=== PATIENT | male | born 1935 | race Caucasian/White ===

== ENCOUNTER 2017-02-15 06:43 | Inpatient (IN) ==
--- NOTE | 2017-02-14 15:23 | Anesthesia Evaluation PreOp ---
Date of Encounter: 02/15/17 Time of Encounter: 07:30 - Past History Planned Operation: CABG Cardiac History: Angina, HTN, Hyperlipidemia, Arrhythmia (bradycardia, first degree AV block, LBBB) Pulmonary History: Other (MCCLAIN) APPLICATION SECURITY ARCHITECT History: Denies Any Significant HX Other Medical History: Diabetes Type II, Other (skin cancer) Anesthesia History: No Prior Anesthetic Complications, Past Anesthesia ( circumcision) Alcohol Use: rarely Drug use: none Medications and Allergies GlipiZIDE XL (24 HR) [Glucotrol XL] 2.5 mg PO 0800 #0 12/24/15 [History] Losartan [Cozaar] 25 mg PO DAILY #0 12/24/15 [History] Metformin HCl [Glucophage] 1,000 mg PO BID #0 12/24/15 [History] hydroCHLOROthiazide [Hydrochlorothiazide] 12.5 mg PO DAILY #0 12/24/15 [History ] Aspirin 81 mg PO DAILY 12/31/16 [History] Acetaminophen [Tylenol] 650 mg PO Q6HR PRN 02/15/17 [History] Atorvastatin Calcium [Lipitor] 20 mg PO HS 02/15/17 [History] Ibuprofen [Motrin] 200 mg PO Q6HR PRN 02/15/17 [History] Insulin Glargine [Lantus] 10 unit SQ HS 02/15/17 [History] Allergies No Known Allergies Allergy (Verified 02/15/17 07:15) - Meds/Allergy Pre-op Review Medications Reviewed: Yes Allergies Reviewed: Yes Beta Blockers on Current Med List: No If Beta Blockers taken, Date/Time (Last Dose taken): 073 on 02/15 Anesthesia Results - Labs Laboratory Tests 02/14/17 02/14/17 15:35 15:35 WBC 8.3 Hgb 13.4 Hct 39.1 Plt Count 208 Sodium 137 Potassium 4.3 BUN 17 Creatinine 1.12 - Imaging EKG: report reviewed Additional studies: Cath shows severe 3 vessel disease with EF 45% Anesthesia Exam Selected Entries 02/15/17 07:11 Temperature 97.8 F Pulse Rate 63 Respiratory Rate 18 Blood Pressure 154/81 O2 Sat by Pulse Oximetry 96 Height: 70in Weight: 89kg (196lbs) NPO (# of Hours): 8 Pain Scale: 0 Pain Scale Used: Numeric (1 - 10) - HEENT Pupil (Motor): EOMI Mallampati: II Teeth: Normal Oral Opening: Greater than 3 - APPLICATION SECURITY ARCHITECT LOC: Oriented APPLICATION SECURITY ARCHITECT Motor: Normal RUE, Normal LUE, Normal RLE, Normal LLE, Normal Face APPLICATION SECURITY ARCHITECT Sensory: Normal: RUE, LUE, RLE, LLE, Face - Cardiac Rhythm: Regular Murmur: None - Pulmonary Breath Sounds: bilateral Clear Respiratory Effort: Symmetrical Anesthesia Assess/Plan ASA Score: 3 Modified [place] Scale for Level of Consciousness: Cooperative, oriented, and tranquil Anesthetic Plan: General Monitoring Plan: Standard Monitors, A-Line, PAC, FER Recovery Plan: ICU (Discussed risks of GA, lines, FER and blood products. Questions answered and agrees to proceed.)
[2017-02-15] MEDS ORDERED: *HR* Phenylephrine 10 MG/ML VIAL ONE (06:54)
[2017-02-15] MEDS ORDERED: *HR* Norepinephrine 4 MG/4 ML VIAL IVC ONE (06:54)
[2017-02-15] MEDS ORDERED: *HR* Rocuronium Bromide 50 MG/5 ML VIAL ONE ×2 (06:54→10:44)
[2017-02-15] MEDS ORDERED: *HR* Etomidate 20 MG/10 ML AMPUL IVP ONE (06:55)
[2017-02-15] MEDS ORDERED: Protamine Sulfate 250 MG/25 ML VIAL IVP ONE (06:55)
[2017-02-15] MEDS ORDERED: Tranexamic Acid 1,000 MG/10 ML VIAL ONE ×2 (06:55→10:04)
[2017-02-15] MEDS ORDERED: Famotidine 20 MG/2 ML VIAL ONE (06:55)
[2017-02-15] MEDS ORDERED: ceFAZolin 1,000 MG in D5% in Water (Mini-Bag+) 100 ML IVPB ONE (07:04)
[2017-02-15] MEDS ORDERED: *HR* Midazolam HCl 5 MG/5 ML VIAL IVP ONE (07:04)
[2017-02-15] MEDS ORDERED: *HR* FentaNYL (PF) 1,000 MCG/20 ML VIAL ONE (07:04)
[2017-02-15] MEDS ORDERED: Nitroglycerin 25 MG/250 ML INFUS..BTL IVC ONE ×2 (07:07→09:18)
[2017-02-15] MEDS ORDERED: NiCARdipine 2.5 MG/10 ML Syringe IVPB ONE (07:08)
--- NOTE | 2017-02-15 07:19 | History & Physical Report ---
Date of Encounter: 02/15/17 Time of Encounter: 07:19 24 Hour HP Update - Instructions Instructions: If the History and Physical is less than 30 days old and was completed prior to A.M. admission and or procedure and has NOT been updated on calendar day of procedure please complete this update prior to performing procedure. - Update Patient reports changes in Medical Condition: No Changes in examination, assessment, or condition: No Changes in Medication: No Preop tests/diagnostics Reviewed: No Pre-Op MRSA Screen: Negative Surgery Remains Indicated: Yes Consent for Planned Operative Procedure(s) Verified: Yes - Pre-Operative Checklist Preoperative Checklist Indicated: No Prophylactic Antibiotic Ordered: Yes Home Medications Include Beta Jorge A: Yes Beta Jorge A Taken Today (Day of Surgery): Yes Beta Jorge A Taken Yesterday (Day Prior to Surgery): Yes Is VTE Prophylaxis Indicated?: NO
[2017-02-15] MEDS ORDERED: Chlorhexidine Rinse 15 ML MOUTHWASH MM ONE (07:23)
[2017-02-15] MEDS ORDERED: Chlorhexidine Rinse 15 ML MOUTHWASH ONE (07:32)
[2017-02-15] MEDS ORDERED: CeFAZolin Pre 2,000 MG/100 ML 2,000 MG/100 ML BAG ONE (07:32)
[2017-02-15] MEDS ORDERED: CeFAZolin Pre 2,000 MG/100 ML 2,000 MG/100 ML BAG IVPB ONE (07:40)
[2017-02-15] MEDS ORDERED: Chlorhexidine Rinse 15 ML MOUTHWASH MM SCH (09:00)
--- NOTE | 2017-02-15 09:14 | Anesthesia Procedures ---
Date of Encounter: 02/15/17 Time of Encounter: 08:00 Procedures: Anesthesia - Arterial Line Consent obtained: written consent Time out performed: Yes Sedation: Versed (mg): 2 Sedation: Fentanyl (mcg): 100 Supplemental Oxygen via Nasal Cannula (L/min): 2 Local Anesthetic: Lidocaine 1% Amount of Anesthetic used (mls): 1 Size (Gauge): 20 Length (inches): 5 Technique Used: sterile prep, guide wire technique, direct puncture technique Post-Procedure: line taped into place, dry sterile dressing placed Patient tolerated procedure: well, no complications Complications: none Site: Radial L (attempt x 1) - Central Line Placement Right IJ Consent obtained: written consent Time out performed: Yes Patient placed on monitor/pulse ox: Yes prep: mask, gown, gloves Central line prep: Chlorhexidine scrub Ultrasound used for placement: Yes Technique: Seldinger Lumen Inserted: Introducer Post procedure: sutured in place, good blood return, all ports aspirated, flushed, capped, sterile dressing applied Patient tolerated procedure: well, no complications Complications: none (attempt x 1. Easy placement of introducer, swan placed without arrythmia, wedge approx 58cm)
[2017-02-15] MEDS ORDERED: Albumin Human 5% 50.0 GM/1,000 ML VIAL ONE (09:18)
[2017-02-15] MEDS ORDERED: Albumin Human 5% 25.0 GM/500 ML VIAL ONE (11:33)
[2017-02-15] MEDS ORDERED: Protamine Sulfate 50 MG/5 ML VIAL IVP ONE (11:36)
[2017-02-15] MEDS ORDERED: Insulin Regular, Human 100 UNIT/ML IV PRN (12:07)
[2017-02-15] MEDS ORDERED: Potassium Chloride 40 MEQ/200 ML BAG IVPB PRN (12:07)
[2017-02-15] MEDS ORDERED: Acetaminophen 650 MG RECTAL SUPP RC PRN (12:07)
[2017-02-15] MEDS ORDERED: Magnesium Sulfate 2 GM in D5% in Water 100 ML IVPB PRN (12:07)
[2017-02-15] MEDS ORDERED: *HR* OxyCODONE/APAP 5/325 TABLET PO PRN (12:07)
[2017-02-15] MEDS ORDERED: *HR* Dextrose 50 % in Water (Syg) 50 ML SYRINGE IVP PRN (12:07)
[2017-02-15] MEDS ORDERED: Ondansetron 4 MG/2 ML VIAL IVP PRN (12:07)
[2017-02-15] MEDS ORDERED: Calcium Chloride 1,000 MG in 0.9 % Sodium Chloride 100 ML IVPB PRN (12:07)
[2017-02-15] MEDS ORDERED: *HR* Morphine 2 MG/ML SYRINGE IVP PRN (12:07)
[2017-02-15] MEDS ORDERED: Naloxone 0.4 MG/ML INJ IVP PRN (12:07)
[2017-02-15] MEDS ORDERED: Tranexamic Acid 1,000 MG/10 ML VIAL IV ONE (12:15)
[2017-02-15] MEDS ORDERED: *HR* Magnesium Sulfate 2 GM/50 ML PIGGYBACK IVPB ONE (12:15)
[2017-02-15] MEDS ORDERED: Mannitol 25% vial 12.5 GM/50 ML VIAL IVP ONE (12:15)
[2017-02-15] MEDS ORDERED: *HR* Heparin 10,000 UNIT/10 ML VIAL IV ONE (12:15)
[2017-02-15] MEDS ORDERED: Albumin Human 25% 25 GM/100 ML IV.SOLN IV ONE (12:15)
[2017-02-15] MEDS ORDERED: Sodium Bicarbonate 50 MEQ/50 ML VIAL IVC ONE (12:15)
[2017-02-15] MEDS ORDERED: *HR* Phenylephrine 10 MG/ML VIAL IVC ONE (12:15)
[2017-02-15] MEDS ORDERED: Lidocaine 2% Syringe 100 MG/5 ML IV ONE (12:15)
--- NOTE | 2017-02-15 12:34 | Operative Note ---
Date of procedure: 02/15/17 Pre-op diagnosis: CAD Post-op diagnosis: same Procedure: 1. CABG4 (BABB to LAD, SVG to D1, SVG to distal LCx, SVG to PDA). 2. Endoscopic vein harvesting, greater saphenous vein from right lower extremity. 3. Endoscopically vein harvesting, greater saphenous vein from left lower extremity. Implants: None. Complications: None. Surgeon: Chris Orellana Chief Of Internal Medicine: Rashid Hidalgo Specimen: None. Condition: stable Disposition: ICU Procedure in Detail: INDICATIONS FOR OPERATION: The patient is an 81-year-old type II diabetic, hypertensive man with hypercholesterolemia. His cardiac symptoms began approximately 1 year ago when he experienced dizziness. He was evaluated at the [facility] urgent care [facility] and then transferred to [facility] for further care. At that time the patient underwent a transthoracic echocardiogram and was found to have an LVEF 45%. 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 Approximately 8-9 months ago, the patient began experiencing recurrent episodes of dizziness, particularly when lifting heavy objects. As time progressed and began experiencing retrosternal "gas pain" as well as shortness of breath. A repeat echocardiogram revealed an LVEF 45%. Given his new symptoms and cardiac risk profile, he was recommended for cardiac catheterization. This study performed December 31, 2016 revealed severe 3 vessel CAD and an LVEF 40%. In particular, the patient has a 50% distal left main lesion, an 80% proximal LAD lesion at the bifurcation of a large D1 branch, an 80-90% proximal D1 branch lesion, and 80% proximal LCx lesion, and a 99% mid RCA lesion. The patient was recommended for CABG; however, wished to be evaluated at the [facility]. During this evaluation the patient was recommended for stent placement, but the patient adamantly refused this procedure and preferred to have CABG. The patient was seen for a second opinion and then scheduled for CABG. FINDINGS AT OPERATION: The aorta was normal caliber and slightly thickened. The coronary arteries measured approximately 2-3 mm in diameter had mild distal disease. The greater saphenous veins were harvested endoscopically from both the right lower extremity and the left lower extremity and were of good quality. The total bypass time was 87 minutes, cross-clamp time 44 minutes, intentional hypothermia 33C. DESCRIPTION OF OPERATION: After obtaining informed consent from the patient, he was taken to the operating room where satisfactory general tracheal anesthetic was induced. Appropriate monitoring lines were placed, and the patient's chest, abdomen, and lower extremities were prepped and draped in a sterile fashion. The greater saphenous vein was initially harvested in the right lower extremity from the knee to the groin. The vein was removed, distended, and one usable segment of vein was obtained. The remaining vein was small and not satisfactory for bypass conduit. The greater saphenous vein was then harvested from the left lower extremity with the knee to the groin. The vein was removed, distended, and found to be of good quality. The subcutaneous tissue and skin edges were reapproximated using running Vicryl sutures. Simultaneously a standard median sternotomy incision was made and the sternum divided. The BABB was taken down from its bed and side branches divided between hemoclips. The sternum was and the pericardium opened and reflected laterally. The patient was prepared for cannulation by placing pursestring sutures the distal ascending aorta, mid-ascending aorta, and right atrial appendage. The patient was heparinized and when the ACT was greater than 200 seconds, the distal ascending aorta was cannulated followed by placement of a dual stage venous cannula through the right atrial appendage and into the inferior vena cava. A stab-and antegrade metabolic and he was placed in the mid ascending aorta. The patient was placed on bypass and the temperature allowed to drift to 33C. The distal targets were identified and the aorta was crossclamped. The patient received 700 mL of cold antegrade crystalloid cardioplegia through the aortic root, and the patient's heart and rapid diastolic arrest. The PDA was opened to be ablated the vein was anastomosed in end-to-side fashion using running 7-0 Prolene suture. The anastomosis was found to be hemostatic. The patient received a notice cold antegrade crystalloid currently just above the aortic root and the right graft. The distal LCx/OM2 branch was opened with the blade and the vein was anastomosed in an end-to-side fashion using running 7-0 Prolene suture. The anastomosis found to be hemostatic. This process is repeated for the D1 branch. After this anastomosis was found to be hemostatic the patient received another dose of cold antegrade crystalloid cardioplegia through the aortic root. The LAD was opened be ablated and the BABB was anastomosed in an end-to-side fashion to the LAD using a running 7-0 Prolene suture. The anastomosis found to be hemostatic and the mammary pedicle was tacked to the epicardium using interrupted 5-0 silk suture. Rewarming was begun during this anastomosis. The aortic cross-clamp was released and the heart distended. The veins were measured and cut at appropriate lengths. A partial occluding clamp was placed across the midascending aorta and the antegrade cardioplegia cannula was removed. Two additional aortotomy sites were made with 11 blade and all 3 sites were enlarged 4 mm punch. The veins were anastomosed in an end-to-side fashion to the aorta using a running 5-0 Prolene suture. The vein grafts were occluded with bulldog clamp and de-aired with a 25-gauge needle prior to removing the partial occluding clamp. The proximal distal anastomoses were found to be hemostatic and the proximal anastomoses were marked with radiopaque loops. Two sets of temporary epicardial pacing was replaced, one atrial and one ventricular. Three chest tubes were placed, 2 in the mediastinum and one into the left pleural space. During rewarming the patient's heart regained a sinus bradycardia rhythm and required temporary DDD pacing. When the patient's systemic temperature is 36C, he was ventilated received line. He was then weaned from bypass required no inotropic support. Protamine was administered, and the aortic and venous cannulae were removed. The pursestring sutures were secured. The venous cannulation site was reinforced with a 4 Prolene suture. The pericardium was loosely approximated the midline using interrupted 0 silk suture. The sternum was reapproximated using sternal wires and the pectoralis major, rectus abdominis fascia, subcutaneous tissue, and skin edges were reapproximated using running Vicryl sutures. Sterile dressings were applied. The patient was transferred to the ICU in satisfactory postoperative condition. There were no intraoperative complications, and the instrument, needle, and sponge count were correct at the end of operation. - Open Heart Detail NANCY (Internal Mammary Artery) Usage: Yes Cardiopulmonary Bypass Time (mins): 87 Aortic Cross Clamp Time (mins): 44 Intentional Hypothermia Temperature (C.): 33
[2017-02-15] MEDS: Nitroglycerin 25 MG/250 ML INFUS..BTL IVC SCH (12:35)
[2017-02-15] MEDS: niCARdipine 40 MG/200 ML MLS IVC SCH (12:45)
[2017-02-15 13:00] LABS: ABG Base Excess 1.9 mEq/L (-2.0 to 3.0); ABG HCO3 26.6 mEQ/L (21-27); ABG Oxygen Saturation 99 % (95-98); ABG PCO2 41 mmHg (35-45); ABG PH 7.42 pH Units (7.32-7.45); ABG PO2 143 mmHg (85-104); ABG TCO2 27.9 mEq/L (20-26); Red Cell Distribution Width 12.9 % (11.5-14.5)
[2017-02-15 13:01] LABS: Blood Gas FiO2 50 %
[2017-02-15 13:02] LABS: Basophils % 0.3 %; Eosinophils # 0.3 K/mcL (0.0-0.6); Immature Granulocytes % 0.9 % (0-4); Immature Platelets 12.9 % (1.1-6.1); Lymphocytes # 3.4 K/mcL (0.6-4.6); Lymphocytes % 24.5 %; Mean Corpuscular HGB Conc 34.5 g/dL (31.6-35.5); Mean Corpuscular Hemoglobin 30.1 pg (28.0-33.3); Mean Corpuscular Volume 87.3 fL (83.0-100.0); Mean Platelet Volume 12.1 fL (9.4-12.4); Monocytes # 0.3 K/mcL (0.0-1.3); Monocytes % 2.5 %; Neutrophils # 9.6 K/mcL (1.6-8.9); Red Blood Count 3.32 M/mcL (4.19-5.50); Segmented Neutrophils % 69.8 %
[2017-02-15 13:07] LABS: INR 1.5; Prothrombin Time 15.9 Seconds (9.4-12.1)
[2017-02-15 13:11] LABS: Activated Partial Thrombo Time 34.4 Seconds (26.0-36.0)
[2017-02-15 13:12] LABS: BUN/Creatinine Ratio 16 (6-26); Blood Urea Nitrogen 14 mg/dL (8-26); Calcium 8.7 mg/dL (8.6-10.8); Carbon Dioxide 26 mEq/L (19-29); Chloride 110 mEq/L (98-109); Glucose 118 mg/dL (70-99); Magnesium 2.4 mg/dL (1.6-2.6); Osmolality,Calculated 296 (280-300); Sodium 142 mEq/L (136-145); eGFR For African Americans > 60 (> 60); eGFR For Non-African Americans > 60 (> 60)
[2017-02-15 13:18] LABS: Platelet Count 85 K/mcL (140-400)
[2017-02-15 13:21] LABS: Platelet Estimate Decreased (Normal)
[2017-02-15] MEDS: Pantoprazole 40 MG VIAL IVP SCH (13:49)
[2017-02-15] MEDS: 0.9 % Sodium Chloride w KCl 20 MEQ/1,000 ML MLS IVC SCH (13:49)
[2017-02-15] MEDS: *HR* Morphine 2 MG/ML SYRINGE IVP PRN ×3 (13:50→22:56)
[2017-02-15] MEDS: Ringers Solution, Lactated 1,000 ML IVC SCH (13:51)
[2017-02-15] MEDS: Insulin Human Regular 100 UNIT in 0.9 % Sodium Chloride 100 ML IVC SCH (14:30)
[2017-02-15] MEDS ORDERED: 0.9 % Sodium Chloride 500 ML ONE (16:06)
[2017-02-15 16:53] LABS: ABG Base Excess 3.2 mEq/L (-2.0 to 3.0); ABG HCO3 28.5 mEQ/L (21-27); ABG Oxygen Saturation 99 % (95-98); ABG PCO2 46 mmHg (35-45); ABG PO2 159 mmHg (85-104); ABG TCO2 29.9 mEq/L (20-26)
[2017-02-15 16:53] LABS: Hematocrit 27.9 % (37.5-50.1); Hemoglobin 9.7 g/dL (12.9-16.9); Mean Corpuscular HGB Conc 34.8 g/dL (31.6-35.5); Mean Corpuscular Hemoglobin 30.3 pg (28.0-33.3); Mean Corpuscular Volume 87.2 fL (83.0-100.0); Mean Platelet Volume 12.1 fL (9.4-12.4); Platelet Count 111 K/mcL (140-400)
[2017-02-15 16:54] LABS: Blood Gas FiO2 50 %
[2017-02-15 17:02] LABS: BUN/Creatinine Ratio 15 (6-26); Blood Urea Nitrogen 13 mg/dL (8-26); Calcium 8.4 mg/dL (8.6-10.8); Carbon Dioxide 24 mEq/L (19-29); Chloride 106 mEq/L (98-109); Glucose 194 mg/dL (70-99); Osmolality,Calculated 291 (280-300); Potassium 3.9 mEq/L (3.5-4.5); Sodium 138 mEq/L (136-145); eGFR For African Americans > 60 (> 60); eGFR For Non-African Americans > 60 (> 60)
[2017-02-15 17:06] LABS: Prothrombin Time 13.5 Seconds (9.4-12.1)
[2017-02-15 17:07] LABS: Activated Partial Thrombo Time 25.3 Seconds (26.0-36.0); INR 1.2
[2017-02-15] MEDS: Metoclopramide 10 MG/2 ML VIAL IVP SCH (17:32)
[2017-02-15] MEDS: ceFAZolin 2,000 MG in D5% in Water 100 ML IVPB SCH (19:39)
[2017-02-15 20:17] LABS: ABG Base Excess 2.4 mEq/L (-2.0 to 3.0); ABG HCO3 27.3 mEQ/L (21-27); ABG Oxygen Saturation 98 % (95-98); ABG PCO2 43 mmHg (35-45); ABG PO2 98 mmHg (85-104); ABG TCO2 28.6 mEq/L (20-26)
[2017-02-15 20:18] LABS: ABG PH 7.41 pH Units (7.32-7.45); Blood Gas FiO2 35 %; Blood Gas Respiration Rate 10
[2017-02-15 20:19] LABS: Blood Gas PEEP 5 cm H2O; Blood Gas VT 670 cc
[2017-02-15] MEDS: Chlorhexidine Rinse 15 ML MOUTHWASH MM SCH (22:57)
[2017-02-16] MEDS: niCARdipine 40 MG/200 ML MLS IVC SCH ×3 (00:19→12:30)
[2017-02-16] MEDS: Nitroglycerin 25 MG/250 ML INFUS..BTL IVC SCH ×2 (00:20→07:51)
[2017-02-16 00:27] LABS: ABG Base Excess 3.6 mEq/L (-2.0 to 3.0); ABG HCO3 29.1 mEQ/L (21-27); ABG Oxygen Saturation 95 % (95-98); ABG PCO2 48 mmHg (35-45); ABG PO2 74 mmHg (85-104); ABG TCO2 30.6 mEq/L (20-26)
[2017-02-16 00:28] LABS: Blood Gas FiO2 28 %
[2017-02-16 00:29] LABS: ABG PH 7.39 pH Units (7.32-7.45)
[2017-02-16] MEDS: Acetaminophen 325 MG TABLET PO PRN ×2 (01:59→08:45)
[2017-02-16] MEDS: Metoclopramide 10 MG/2 ML VIAL IVP SCH ×5 (01:59→22:26)
[2017-02-16 04:02] LABS: Basophils % 0.2 %; Hematocrit 27.9 % (37.5-50.1); Hemoglobin 9.3 g/dL (12.9-16.9); Immature Granulocytes % 0.5 % (0-4); Lymphocytes # 1.3 K/mcL (0.6-4.6); Lymphocytes % 11.5 %; Mean Corpuscular HGB Conc 33.3 g/dL (31.6-35.5); Mean Corpuscular Hemoglobin 29.4 pg (28.0-33.3); Mean Corpuscular Volume 88.3 fL (83.0-100.0); Mean Platelet Volume 12.1 fL (9.4-12.4); Monocytes # 1.2 K/mcL (0.0-1.3); Monocytes % 10.8 %; Neutrophils # 8.7 K/mcL (1.6-8.9); Platelet Count 113 K/mcL (140-400); Red Blood Count 3.16 M/mcL (4.19-5.50); Red Cell Distribution Width 13.2 % (11.5-14.5)
[2017-02-16 04:07] LABS: INR 1.1
[2017-02-16 04:09] LABS: Activated Partial Thrombo Time 27.4 Seconds (26.0-36.0)
[2017-02-16 04:14] LABS: Prothrombin Time 12.3 Seconds (9.4-12.1)
[2017-02-16 04:15] LABS: BUN/Creatinine Ratio 16 (6-26); Blood Urea Nitrogen 17 mg/dL (8-26); Calcium 8.4 mg/dL (8.6-10.8); Carbon Dioxide 24 mEq/L (19-29); Chloride 110 mEq/L (98-109); Glucose 123 mg/dL (70-99); Magnesium 1.9 mg/dL (1.6-2.6); Osmolality,Calculated 295 (280-300); Potassium 4.4 mEq/L (3.5-4.5); eGFR For African Americans > 60 (> 60); eGFR For Non-African Americans > 60 (> 60)
[2017-02-16 04:17] LABS: Sodium 141 mEq/L (136-145)
[2017-02-16] MEDS: ceFAZolin 2,000 MG in D5% in Water 100 ML IVPB SCH (04:32)
[2017-02-16] MEDS: 0.9 % Sodium Chloride w KCl 20 MEQ/1,000 ML MLS IVC SCH (04:44)
[2017-02-16 07:07] LABS: ABG Base Excess -0.6 mEq/L (-2.0 to 3.0); ABG HCO3 27.4 mEQ/L (21-27); ABG Hematocrit 36 % (35-51); ABG Oxygen Saturation 86 % (95-98); ABG PCO2 61 mmHg (35-45); ABG PH 7.26 pH Units (7.32-7.45); ABG PO2 60 mmHg (85-104); ABG TCO2 29.3 mEq/L (20-26)
[2017-02-16 07:08] LABS: ABG Glucose 187 mg/dL (60-95); ABG Ionized Calcium 1.16 mmol/L (1.15-1.35)
[2017-02-16 07:12] LABS: ABG Base Excess -6.4 mEq/L (-2.0 to 3.0); ABG Glucose 218 mg/dL (60-95); ABG HCO3 21.5 mEQ/L (21-27); ABG Hematocrit 27 % (35-51); ABG Ionized Calcium 0.83 mmol/L (1.15-1.35); ABG Oxygen Saturation 99 % (95-98); ABG PCO2 55 mmHg (35-45); ABG PO2 147 mmHg (85-104); ABG TCO2 23.2 mEq/L (20-26)
[2017-02-16 07:15] LABS: ABG Base Excess 2.3 mEq/L (-2.0 to 3.0); ABG HCO3 28.2 mEQ/L (21-27); ABG Hematocrit 21 % (35-51); ABG Oxygen Saturation 100 % (95-98); ABG PCO2 51 mmHg (35-45); ABG PH 7.35 pH Units (7.32-7.45); ABG PO2 409 mmHg (85-104); ABG TCO2 29.8 mEq/L (20-26)
[2017-02-16 07:16] LABS: ABG Glucose 283 mg/dL (60-95); ABG Ionized Calcium 0.94 mmol/L (1.15-1.35)
--- NOTE | 2017-02-16 07:17 | Cardiothoracic Progress Note ---
Date of Encounter: 02/16/17 Time of Encounter: 07:15 - Assessment and plan (1) CAD (coronary artery disease) Current Visit: Yes Status: Acute The patient is recovering well from his CABG4. He is extubated and breathing comfortably. The arterial line, Mancia catheter, and [place]-Bill catheter be removed. The patient will be transferred to the stepdown unit when a bed is available. The assessment and plan as outlined above was discussed with the patient and/or family members who expressed understanding and agreement. All questions were answered. - Subjective Procedure(s) Performed: POD#1 S/P CABG4 Interval history: The patient remained hemodynamically stable overnight. He is extubated and breathing comfortably. He was able to sit in a chair earlier this morning without difficulty. Vital Signs, Last 4 Hours Temp Pulse Resp BP Pulse Ox 02/16/17 06:25 99.6 F 80 12 105/46 94 02/16/17 05:27 80 02/16/17 05:21 99.2 F 80 12 103/51 96 02/16/17 04:00 99.7 F H 80 12 110/46 97 Oxgyen Flow Rate Oxygen Flow Rate (LPM) 2 Clinical Data, last 8 Hours Output, Chest Tube Drainage 75 Amount [Mediastinal #2] Output, Chest Tube Drainage 10 Amount [Mediastinal #2] Output, Chest Tube Drainage 15 Amount [Mediastinal #2] Output, Chest Tube Drainage 10 Amount [Mediastinal #1] Output, Chest Tube Drainage 20 Amount [Mediastinal #1] Output, Chest Tube Drainage 40 Amount [Mediastinal #1] Weight 02/14/17 02/15/17 02/16/17 23:59 23:59 23:59 Weight 88.451 kg - Physical Examination General: Conversant, No Apparent Distress Neck: No JVD, Normal carotid pulses Cardiac: Reg Rate and Rhythm, Normal S1 and S2 Incision: No signs of infection, Dry/intact dressing Sternum: Stable Chest tubes: Minimal drainage, Other (No air leak.) Pacing Wires: In place Lungs: Normal Breath Sounds, No Wheeze, Rales, Rhonchi Neuro: Alert and responsive, No focal deficits noted Vascular: Normal capillary refill Musculoskeletal: No Chest Wall Tenderness Extremities: No Clubbing, No Cyanosis, No Edema, Normal Pulses - Labs 02/16/17 03:50 02/16/17 03:50 Lab Results, Last 24 hours 02/15/17 02/15/17 02/15/17 12:45 12:45 12:45 WBC 13.7 H D Hgb 10.0 L D Hct 29.0 L Plt Count 85 L D INR 1.5 APTT 34.4 Sodium 142 Potassium 4.0 Chloride 110 H Carbon Dioxide 26 BUN 14 Creatinine 0.88 Glucose 118 H Calcium 8.7 Magnesium 2.4 02/15/17 02/15/17 02/15/17 16:45 16:45 16:45 WBC 13.9 H Hgb 9.7 L Hct 27.9 L Plt Count 111 L INR 1.2 APTT 25.3 L Sodium 138 Potassium 3.9 Chloride 106 Carbon Dioxide 24 BUN 13 Creatinine 0.89 Glucose 194 H Calcium 8.4 L Magnesium 02/16/17 02/16/17 02/16/17 03:50 03:50 03:50 WBC 11.2 H Hgb 9.3 L Hct 27.9 L Plt Count 113 L INR 1.1 APTT 27.4 Sodium 141 Potassium 4.4 Chloride 110 H Carbon Dioxide 24 BUN 17 Creatinine 1.08 Glucose 123 H Calcium 8.4 L Magnesium 1.9 - Imaging Chest Xray: image reviewed (No pneumothorax. Minimal atelectasis/infiltrates.) - VTE Reasons for not Prescribing Prophylaxis: Treatment not Indicated - Low risk for VTE Documentation of Mechanical Device: Graduated compression elastic hosiery Consult Discharge Plan - Plan [facility]errals: [facility] [Primary Care Provider] -
[2017-02-16 07:19] LABS: ABG Glucose 266 mg/dL (60-95); ABG Hematocrit 25 % (35-51); ABG Oxygen Saturation 100 % (95-98); ABG PCO2 38 mmHg (35-45); ABG PO2 434 mmHg (85-104); ABG TCO2 28.2 mEq/L (20-26)
[2017-02-16 07:20] LABS: ABG PH 7.46 pH Units (7.32-7.45)
[2017-02-16 07:22] LABS: ABG Base Excess 2.4 mEq/L (-2.0 to 3.0); ABG Glucose 259 mg/dL (60-95); ABG HCO3 25.9 mEQ/L (21-27); ABG Hematocrit 23 % (35-51); ABG Ionized Calcium 0.99 mmol/L (1.15-1.35); ABG Oxygen Saturation 100 % (95-98); ABG PCO2 34 mmHg (35-45); ABG PH 7.49 pH Units (7.32-7.45); ABG PO2 321 mmHg (85-104); ABG TCO2 26.9 mEq/L (20-26)
[2017-02-16 07:24] LABS: ABG Base Excess 1.6 mEq/L (-2.0 to 3.0); ABG Glucose 201 mg/dL (60-95); ABG HCO3 25.7 mEQ/L (21-27); ABG Hematocrit 23 % (35-51); ABG Ionized Calcium 1.03 mmol/L (1.15-1.35); ABG Oxygen Saturation 100 % (95-98); ABG PCO2 37 mmHg (35-45); ABG PH 7.45 pH Units (7.32-7.45); ABG PO2 324 mmHg (85-104); ABG TCO2 26.8 mEq/L (20-26)
[2017-02-16 07:26] LABS: ABG PCO2 37 mmHg (35-45); ABG PH 7.39 pH Units (7.32-7.45); ABG PO2 126 mmHg (85-104)
[2017-02-16 07:27] LABS: ABG Base Excess -2.3 mEq/L (-2.0 to 3.0); ABG Glucose 138 mg/dL (60-95); ABG HCO3 22.4 mEQ/L (21-27); ABG Hematocrit 20 % (35-51); ABG Ionized Calcium 1.28 mmol/L (1.15-1.35); ABG Oxygen Saturation 99 % (95-98); ABG TCO2 23.5 mEq/L (20-26)
[2017-02-16] MEDS: Ringers Solution, Lactated 1,000 ML IVC SCH (07:52)
[2017-02-16] MEDS ORDERED: Furosemide 20 MG/2 ML VIAL IVP SCH (08:00)
[2017-02-16] MEDS: Pantoprazole 40 MG VIAL IVP SCH (08:46)
[2017-02-16] MEDS: Chlorhexidine Rinse 15 ML MOUTHWASH MM SCH ×2 (08:46→20:08)
[2017-02-16] MEDS ORDERED: Aspirin Enteric Coated 81 MG Tablet PO SCH (09:00)
[2017-02-16] MEDS: Norepinephrine 4 MG in D5% in Water 250 ML IVC SCH ×2 (11:02)
[2017-02-16] MEDS: Insulin Human Regular 100 UNIT in 0.9 % Sodium Chloride 100 ML IVC SCH (13:54)
--- NOTE | 2017-02-16 14:21 | Electrocardiograph Report ---
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
[2017-02-16] MEDS ORDERED: Dextrose Gel 15 GM PO PRN ×2 (15:01)
[2017-02-16] MEDS ORDERED: Naloxone 0.4 MG/ML INJ IVP PRN (15:01)
[2017-02-16] MEDS ORDERED: *HR* Dextrose 50 % in Water (Syg) 50 ML SYRINGE IVP PRN (15:01)
[2017-02-16] MEDS ORDERED: *HR* Morphine 2 MG/ML SYRINGE IVP PRN (15:01)
[2017-02-16] MEDS ORDERED: *HR* OxyCODONE/APAP 5/325 TABLET PO PRN (15:01)
[2017-02-16] MEDS ORDERED: Insulin Human Regular 300 UNIT/3 ML per UNIT IV PRN (15:01)
[2017-02-16] MEDS ORDERED: Acetaminophen 325 MG TABLET PO PRN (15:01)
[2017-02-16] MEDS ORDERED: D5% in Water 1,000 ML IVC PRN (15:01)
[2017-02-16] MEDS ORDERED: Ondansetron 4 MG/2 ML VIAL IVP PRN (15:01)
[2017-02-16] MEDS: Insulin LISPRO 300 UNITS/3 ML VIAL SQ SCH ×3 (15:30→20:11)
[2017-02-16] MEDS: *HR* Heparin 5,000 UNIT/ML VIAL SQ SCH ×2 (15:45→17:34)
[2017-02-16] MEDS: *HR* GlipiZIDE XL (24 HR) 2.5 MG TABLET PO SCH (16:00)
[2017-02-16] MEDS: *HR* Morphine 2 MG/ML SYRINGE IVP PRN ×2 (16:00→22:27)
[2017-02-16] MEDS: *HR* Metformin 500 MG TABLET PO SCH (17:33)
[2017-02-16] MEDS: Furosemide 20 MG/2 ML VIAL IVP SCH (17:34)
[2017-02-16] MEDS: *HR* Acetaminophen w/Cod 300-30 mg 1 TAB TABLET PO PRN (20:08)
[2017-02-17 04:20] LABS: BUN/Creatinine Ratio 19 (6-26); Blood Urea Nitrogen 24 mg/dL (8-26); Calcium 8.5 mg/dL (8.6-10.8); Carbon Dioxide 23 mEq/L (19-29); Chloride 105 mEq/L (98-109); Glucose 248 mg/dL (70-99); Osmolality,Calculated 296 (280-300); Potassium 4.2 mEq/L (3.5-4.5); Sodium 137 mEq/L (136-145); eGFR For African Americans > 60 (> 60); eGFR For Non-African Americans 54 (> 60)
[2017-02-17] MEDS: *HR* Heparin 5,000 UNIT/ML VIAL SQ SCH ×2 (05:15→16:39)
[2017-02-17] MEDS: Metoclopramide 10 MG/2 ML VIAL IVP SCH ×4 (05:15→23:59)
[2017-02-17] MEDS: *HR* Acetaminophen w/Cod 300-30 mg 1 TAB TABLET PO PRN ×4 (05:21→20:53)
[2017-02-17] MEDS: *HR* Metformin 500 MG TABLET PO SCH ×2 (07:57→16:40)
[2017-02-17] MEDS: *HR* GlipiZIDE XL (24 HR) 2.5 MG TABLET PO SCH (07:58)
[2017-02-17] MEDS: Chlorhexidine Rinse 15 ML MOUTHWASH MM SCH ×2 (07:59→20:53)
[2017-02-17] MEDS: Aspirin Enteric Coated 81 MG Tablet PO SCH (07:59)
[2017-02-17] MEDS: Insulin LISPRO 300 UNITS/3 ML VIAL SQ SCH ×4 (08:00→20:56)
[2017-02-17] MEDS: Furosemide 20 MG/2 ML VIAL IVP SCH ×2 (08:00→16:40)
--- NOTE | 2017-02-17 08:32 | Cardiothoracic Progress Note ---
Date of Encounter: 02/17/17 Time of Encounter: 08:32 - Assessment and plan (1) CAD (coronary artery disease) Current Visit: Yes Status: Acute The patient is recovering well from his CABG4. He is breathing comfortably. The chest tubes were removed. The patient will be transferred to the stepdown unit when a bed is available. The assessment and plan as outlined above was discussed with the patient and/or family members who expressed understanding and agreement. All questions were answered. - Subjective Procedure(s) Performed: POD#2 S/P CABG4 Interval history: The patient remained hemodynamically stable overnight. He is sitting in a chair at the bedside and is breathing comfortably. Vital Signs, Last 4 Hours Temp Resp BP Pulse Ox 02/17/17 07:34 22 121/52 93 02/17/17 07:15 98.1 F Oxgyen Flow Rate Oxygen Flow Rate (LPM) 2 Clinical Data, last 8 Hours Output, Chest Tube Drainage 20 Amount [Mediastinal #2] Output, Chest Tube Drainage 0 Amount [Mediastinal #2] Output, Chest Tube Drainage 50 Amount [Mediastinal #1] Output, Chest Tube Drainage 20 Amount [Mediastinal #1] Output, Urine Amount 0 Output, Urine Amount 100 Weight 02/15/17 02/16/17 02/17/17 23:59 23:59 23:59 Weight 88.451 kg 96.3 kg - Physical Examination General: Conversant, No Apparent Distress Neck: No JVD, Normal carotid pulses Cardiac: Normal S1 and S2, No Murmur, Other (Iregular rate and rhythm (atrial fibrillation).) Incision: No signs of infection, Dry/intact dressing Sternum: Stable Chest tubes: Minimal drainage, Other (No air leak.) Lungs: Normal Breath Sounds, No Wheeze, Rales, Rhonchi Neuro: Alert and responsive, No focal deficits noted Vascular: Normal capillary refill Extremities: No Clubbing, No Cyanosis, No Edema - Labs 02/16/17 03:50 02/17/17 04:00 Lab Results, Last 24 hours 02/17/17 04:00 Sodium 137 Potassium 4.2 Chloride 105 Carbon Dioxide 23 BUN 24 Creatinine 1.29 H Glucose 248 H Calcium 8.5 L - Imaging Chest Xray: image reviewed (No pneumothorax. Left pleural effusion, unchanged.) - VTE Reasons for not Prescribing Prophylaxis: Treatment not Indicated - Low risk for VTE Documentation of Mechanical Device: Graduated compression elastic hosiery Consult Discharge Plan - Plan [facility]errals: [facility] [Primary Care Provider] -
[2017-02-17] MEDS ORDERED: Amiodarone Premix 360 MG/200 ML BAG IVC ONE (08:37)
[2017-02-17] MEDS ORDERED: Amiodarone Premix 150 MG/100 ML BAG IVPB ONE (08:37)
--- NOTE | 2017-02-17 09:02 | Anesthesia Evaluation Post Op ---
Date of Encounter: 02/17/17 Time of Encounter: 08:30 - Vital Signs Vital Signs: Selected Entries 02/17/17 08:00 Pulse Rate 90 Respiratory Rate 20 Blood Pressure 109/70 O2 Sat by Pulse Oximetry 92 Oxygen Flow Rate (LPM) 2 Oxygen Delivery Method Nasal Cannula - Lungs Lungs: Clear Ascult./Percussion - Airway Airway: Non-obstructed - Cardiovascular Regular Rate - Mental Status Mental Status: Alert & Oriented, Answers Appropriately - Pain Pain Scale: 3 Pain Scale used: Numeric (1 - 10) - Nausea Vomiting Nausea Vomiting: Not Present - Hydration Hydration: Tolerates oral liquids (No anesthesia complications)
[2017-02-17] MEDS: Pantoprazole 40 MG VIAL IVP SCH (09:53)
[2017-02-17] MEDS: Insulin DETEMIR 100 UNIT/ML X5UNITS SQ SCH (10:03)
[2017-02-17] MEDS: Amiodarone Premix 360 MG/200 ML BAG IVC SCH (16:30)
[2017-02-18] MEDS: *HR* Acetaminophen w/Cod 300-30 mg 1 TAB TABLET PO PRN ×4 (04:03→22:18)
[2017-02-18] MEDS: *HR* Heparin 5,000 UNIT/ML VIAL SQ SCH ×2 (04:50→16:51)
[2017-02-18] MEDS: Metoclopramide 10 MG/2 ML VIAL IVP SCH ×3 (04:50→16:51)
[2017-02-18] MEDS: Amiodarone Premix 360 MG/200 ML BAG IVC SCH (04:55)
[2017-02-18 05:12] LABS: Basophils % 0.3 %; Eosinophils # 0.2 K/mcL (0.0-0.6); Eosinophils % 2.1 %; Hematocrit 22.7 % (37.5-50.1); Lymphocytes # 1.7 K/mcL (0.6-4.6); Lymphocytes % 18.5 %; Mean Corpuscular HGB Conc 33.5 g/dL (31.6-35.5); Mean Corpuscular Hemoglobin 30.5 pg (28.0-33.3); Mean Corpuscular Volume 91.2 fL (83.0-100.0); Mean Platelet Volume 12.4 fL (9.4-12.4); Monocytes # 0.9 K/mcL (0.0-1.3); Monocytes % 9.5 %; Neutrophils # 6.5 K/mcL (1.6-8.9); Platelet Count 124 K/mcL (140-400); Red Blood Count 2.49 M/mcL (4.19-5.50); Red Cell Distribution Width 13.9 % (11.5-14.5); Segmented Neutrophils % 68.6 %
[2017-02-18 05:13] LABS: Hemoglobin 7.6 g/dL (12.9-16.9)
[2017-02-18 05:22] LABS: BUN/Creatinine Ratio 24 (6-26); Blood Urea Nitrogen 28 mg/dL (8-26); Calcium 8.4 mg/dL (8.6-10.8); Carbon Dioxide 24 mEq/L (19-29); Chloride 103 mEq/L (98-109); Glucose 239 mg/dL (70-99); Osmolality,Calculated 295 (280-300); Sodium 136 mEq/L (136-145); eGFR For African Americans > 60 (> 60); eGFR For Non-African Americans 59 (> 60)
[2017-02-18] MEDS: Insulin DETEMIR 100 UNIT/ML X5UNITS SQ SCH (08:31)
[2017-02-18] MEDS: Aspirin Enteric Coated 81 MG Tablet PO SCH (08:32)
[2017-02-18] MEDS: Chlorhexidine Rinse 15 ML MOUTHWASH MM SCH ×2 (08:32→22:18)
[2017-02-18] MEDS: *HR* Metformin 500 MG TABLET PO SCH ×2 (08:32→16:52)
[2017-02-18] MEDS: Pantoprazole 40 MG VIAL IVP SCH (08:32)
[2017-02-18] MEDS: Furosemide 20 MG/2 ML VIAL IVP SCH ×2 (08:32→16:51)
[2017-02-18] MEDS: *HR* GlipiZIDE XL (24 HR) 2.5 MG TABLET PO SCH (08:33)
[2017-02-18] MEDS: Insulin LISPRO 300 UNITS/3 ML VIAL SQ SCH ×4 (08:37→22:18)
--- NOTE | 2017-02-18 11:52 | Cardiothoracic Progress Note ---
Date of Encounter: 02/18/17 Time of Encounter: 11:50 - Assessment and plan (1) Type 2 diabetes mellitus Current Visit: No Status: Acute The assessment and plan as outlined above was discussed with the patient and/or family members who expressed understanding and agreement. All questions were answered. The patient has a hemoglobin of 7.6, but is asymptomatic. I will switch him from IV to by mouth amiodarone. He is recovering well. Qualifiers: Diabetes mellitus complication status: with unspecified complications Qualified Code(s): E11.8 - Type 2 diabetes mellitus with unspecified complications - Subjective Interval history: The patient has no complaints. Vital Signs, Last 4 Hours Temp Pulse Resp BP Pulse Ox 02/18/17 11:08 97.6 F 51 18 93/75 93 02/18/17 08:15 98.0 F 75 18 138/58 91 02/18/17 07:56 18 138/58 91 Oxgyen Flow Rate Oxygen Flow Rate (LPM) 2 Clinical Data, last 8 Hours Output, Urine Amount 0 Output, Urine Amount 150 Weight 02/16/17 02/17/17 02/18/17 23:59 23:59 23:59 Weight 97.2 kg 89.8 kg Lungs are clear to percussion and auscultation. Heart is in a normal sinus rhythm on an amiodarone drip. All incisions are healing well without signs of infection and the sternum is stable. - Labs 02/18/17 04:40 02/18/17 04:40 Lab Results, Last 24 hours 02/18/17 02/18/17 04:40 04:40 WBC 9.4 Hgb 7.6 L D Hct 22.7 L Plt Count 124 L Sodium 136 Potassium 4.0 Chloride 103 Carbon Dioxide 24 BUN 28 H Creatinine 1.19 Glucose 239 H Calcium 8.4 L - VTE Reasons for not Prescribing Prophylaxis: Treatment not Indicated - Low risk for VTE Documentation of Mechanical Device: Graduated compression elastic hosiery Consult Discharge Plan - Plan [facility]errals: [facility] [Primary Care Provider] -
[2017-02-18] MEDS: *HR* Amiodarone 200 MG TABLET PO SCH (22:17)
[2017-02-19 05:08] LABS: Basophils % 0.2 %; Eosinophils # 0.2 K/mcL (0.0-0.6); Hematocrit 23.1 % (37.5-50.1); Hemoglobin 7.5 g/dL (12.9-16.9); Immature Granulocytes % 0.7 % (0-4); Lymphocytes # 1.8 K/mcL (0.6-4.6); Lymphocytes % 20.7 %; Mean Corpuscular HGB Conc 32.5 g/dL (31.6-35.5); Mean Corpuscular Hemoglobin 29.5 pg (28.0-33.3); Mean Corpuscular Volume 90.9 fL (83.0-100.0); Mean Platelet Volume 12.1 fL (9.4-12.4); Monocytes # 0.9 K/mcL (0.0-1.3); Monocytes % 10.6 %; Neutrophils # 5.6 K/mcL (1.6-8.9); Platelet Count 173 K/mcL (140-400); Red Blood Count 2.54 M/mcL (4.19-5.50); Red Cell Distribution Width 13.9 % (11.5-14.5); Segmented Neutrophils % 65.8 %
[2017-02-19 05:20] LABS: BUN/Creatinine Ratio 26 (6-26); Blood Urea Nitrogen 31 mg/dL (8-26); Calcium 8.7 mg/dL (8.6-10.8); Carbon Dioxide 23 mEq/L (19-29); Chloride 102 mEq/L (98-109); Glucose 210 mg/dL (70-99); Osmolality,Calculated 295 (280-300); Potassium 4.1 mEq/L (3.5-4.5); Sodium 136 mEq/L (136-145); eGFR For African Americans > 60 (> 60); eGFR For Non-African Americans 59 (> 60)
[2017-02-19] MEDS: *HR* Heparin 5,000 UNIT/ML VIAL SQ SCH ×2 (05:56→17:26)
[2017-02-19] MEDS: *HR* Acetaminophen w/Cod 300-30 mg 1 TAB TABLET PO PRN ×3 (05:56→21:30)
[2017-02-19] MEDS: Insulin LISPRO 300 UNITS/3 ML VIAL SQ SCH ×4 (07:59→21:14)
[2017-02-19] MEDS: Chlorhexidine Rinse 15 ML MOUTHWASH MM SCH ×2 (08:38→21:13)
[2017-02-19] MEDS: Pantoprazole 40 MG VIAL IVP SCH (08:38)
[2017-02-19] MEDS: Furosemide 20 MG/2 ML VIAL IVP SCH ×2 (08:38→17:26)
[2017-02-19] MEDS: *HR* Amiodarone 200 MG TABLET PO SCH ×2 (08:39→21:13)
[2017-02-19] MEDS: Aspirin Enteric Coated 81 MG Tablet PO SCH (08:39)
[2017-02-19] MEDS: *HR* Metformin 500 MG TABLET PO SCH ×2 (08:39→17:26)
[2017-02-19] MEDS: *HR* GlipiZIDE XL (24 HR) 2.5 MG TABLET PO SCH (08:39)
[2017-02-19] MEDS: Insulin DETEMIR 100 UNIT/ML X5UNITS SQ SCH (08:46)
--- NOTE | 2017-02-19 09:30 | Cardiothoracic Progress Note ---
Date of Encounter: 02/19/17 Time of Encounter: 09:28 - Assessment and plan (1) Type 2 diabetes mellitus Current Visit: No Status: Acute The patient has the usual, expected acute postoperative blood loss anemia. Hemoglobin is stable at 7.5. He is asymptomatic from this. Hopefully, he can be discharged tomorrow. Qualifiers: Diabetes mellitus complication status: with unspecified complications Qualified Code(s): E11.8 - Type 2 diabetes mellitus with unspecified complications - Subjective Interval history: The patient is ambulating without complaints and is anxious to go home. Vital Signs, Last 4 Hours Temp Pulse Resp BP Pulse Ox 02/19/17 08:12 16 97 02/19/17 07:57 97.7 F 68 16 116/62 97 02/19/17 07:55 62 Oxgyen Flow Rate Oxygen Flow Rate (LPM) 2 Clinical Data, last 8 Hours Output, Urine Amount 120 Weight 02/17/17 02/18/17 02/19/17 23:59 23:59 23:59 Weight 97.2 kg 89.8 kg 92.8 kg Lungs are clear to percussion and auscultation. Heart is in a normal sinus rhythm. All incisions are healing well without signs of infection and the sternum is stable. - Labs 02/19/17 04:30 02/19/17 04:30 Lab Results, Last 24 hours 02/19/17 02/19/17 04:30 04:30 WBC 8.5 Hgb 7.5 L Hct 23.1 L Plt Count 173 Sodium 136 Potassium 4.1 Chloride 102 Carbon Dioxide 23 BUN 31 H Creatinine 1.18 Glucose 210 H Calcium 8.7 - VTE Reasons for not Prescribing Prophylaxis: Treatment not Indicated - Low risk for VTE Documentation of Mechanical Device: Graduated compression elastic hosiery Consult Discharge Plan - Plan [facility]errals: [facility] [Primary Care Provider] -
[2017-02-20] MEDS: *HR* Heparin 5,000 UNIT/ML VIAL SQ SCH (06:21)
[2017-02-20 07:21] VITALS: BP 133/67
[2017-02-20] MEDS ORDERED: Sennosides/Docusate Sodium TABLET PO PRN (08:28)
--- NOTE | 2017-02-20 08:55 | Discharge Summary ---
Date of Encounter: 02/20/17 Time of Encounter: 08:49 - Discharge Diagnosis (1) Type 2 diabetes mellitus Priority: Primary Status: Acute Qualifiers: Diabetes mellitus complication status: with unspecified complications Qualified Code(s): E11.8 - Type 2 diabetes mellitus with unspecified complications - Discharge Medications Prescriptions: Acetaminophen w/Cod 300-30 mg [Tylenol w/Codeine #3] 2 tab PO Q4HR PRN #30 tablet PRN Reason: Severe Pain Amiodarone [Cordarone] 200 mg PO DAILY #30 tablet Metoprolol [Lopressor] 12.5 mg PO BID #60 tablet Home Medications: GlipiZIDE XL (24 HR) [Glucotrol XL] 2.5 mg PO 0800 #0 12/24/15 [History] Losartan [Cozaar] 25 mg PO DAILY #0 12/24/15 [History] Metformin HCl [Glucophage] 1,000 mg PO BID #0 12/24/15 [History] hydroCHLOROthiazide [Hydrochlorothiazide] 12.5 mg PO DAILY #0 12/24/15 [History ] Aspirin 81 mg PO DAILY 12/31/16 [History] Acetaminophen [Tylenol] 650 mg PO Q6HR PRN 02/15/17 [History] Atorvastatin Calcium [Lipitor] 20 mg PO HS 02/15/17 [History] Ibuprofen [Motrin] 200 mg PO Q6HR PRN 02/15/17 [History] Insulin Glargine [Lantus] 10 unit SQ HS 02/15/17 [History] Acetaminophen w/Cod 300-30 mg [Tylenol w/Codeine #3] 2 tab PO Q4HR PRN #30 tablet 02/20/17 [Rx] Amiodarone [Cordarone] 200 mg PO DAILY #30 tablet 02/20/17 [Rx] Metoprolol [Lopressor] 12.5 mg PO BID #60 tablet 02/20/17 [Rx] Allergies/Adverse Reactions: Allergies No Known Allergies Allergy (Verified 02/15/17 07:15) Date of admission: 02/15/17 10:28 Primary care physician: PCP [place] Consults: 02/15/17 12:07 Consult to Cardiac Rehabilitation-Phase1 [CONS] Routine Comment: Reason for Consult: Post open heart Call Completed: Yes Procedure(s) Performed: February 15, 2017. Coronary artery bypass grafting 4, utilizing the left internal mammary artery. Discharging clinician: Joselo Rutledge Anticipated date of discharge: 02/20/17 - Patient Status Disposition: Home, Self-Care Condition: Fair Functional capacity at discharge: independent ambulation Overall status at discharge: patient is progressing back to baseline - Discharge Instructions [facility] With: [facility] [Primary Care Provider[facility] - - Hospital Course Hospital course: Mr. West is a 81 year old male The patient is an 81-year-old gentleman who presented with dizziness. He does have a history of hypertension, hypercholesterolemia and diabetes. Workup revealed an ejection fraction of 45%. Cardiac catheterization revealed severe coronary artery disease. On February 15, 2017, Dr. Orellana took the patient to the operating room for coronary artery bypass grafting 4, utilizing his left internal mammary artery. Transfer orders were written on February 16. On February 17 the chest tubes were removed. On February 20, the pacing wires were removed. The patient did have atrial fibrillation. He was started on an amiodarone drip and this was converted to by mouth. He converted to normal sinus rhythm. The patient otherwise did well and was discharged on February 20. At that time, he was afebrile. Lungs were clear to percussion and auscultation. Heart was in a normal sinus rhythm. All incisions were healing well without signs of infection and the sternum was stable. Discharge medications are on the med rec and include narcotics for pain. I did check the [place] automated Rx reporting system. The patient was postoperative and received a 1 week supply. Appropriate precautions were given. He was to return to his previous diabetic diet. He was to walk as much as possible, but to avoid heavy lifting for a total of 3 months after surgery. He was to avoid driving for 1 month. He was to follow up and see Dr. Orellana in the office in 4 weeks as directed. He is to follow-up with his family doctor and prescription clerk as directed. He was to call sooner for any difficulties. - Time Spent with Patient Total time spent providing and/or coordinating discharge services: Physical Examination Vital Signs, Last 4 Hours Temp Pulse Resp BP Pulse Ox 02/20/17 07:48 18 95 02/20/17 07:20 97.6 F 75 18 133/67 95 Open Heart Registry Aspirin Cont/Prescribed at DC: Yes Beta Jorge A Cont/Prescribed at DC: Yes Statin Cont/Prescribed at DC: Yes ALEXSANDER/ARB Cont/Prescribed at DC: Yes - VTE Reasons for not Prescribing Prophylaxis: Treatment not Indicated - Low risk for VTE Documentation of Mechanical Device: Graduated compression elastic hosiery
[2017-02-20] MEDS: Chlorhexidine Rinse 15 ML MOUTHWASH MM SCH (09:15)
[2017-02-20] MEDS: Pantoprazole 40 MG VIAL IVP SCH (09:15)
[2017-02-20] MEDS: *HR* Metformin 500 MG TABLET PO SCH (09:16)
[2017-02-20] MEDS: Insulin LISPRO 300 UNITS/3 ML VIAL SQ SCH (09:16)
[2017-02-20] MEDS: Aspirin Enteric Coated 81 MG Tablet PO SCH (09:16)
[2017-02-20] MEDS: *HR* Amiodarone 200 MG TABLET PO SCH (09:17)
[2017-02-20] MEDS: *HR* GlipiZIDE XL (24 HR) 2.5 MG TABLET PO SCH (09:17)
[2017-02-20] MEDS: Furosemide 20 MG/2 ML VIAL IVP SCH (09:18)
[2017-02-20] MEDS: Insulin DETEMIR 100 UNIT/ML X5UNITS SQ SCH (09:33)
== END 2017-02-20 14:15 | disposition home or self-care (01) | DRG 236 ==
LOC: SAMDAY 06:43 → ICNU 10:28 → 2NNU 02-17 13:57
PROVIDERS: ADMIT Thoracic Surgery (Cardiothoracic Vascular Surgery); ATTEND Thoracic Surgery (Cardiothoracic Vascular Surgery)

== ENCOUNTER 2021-01-26 12:55 | Observation (INO) ==
[2021-01-26] MEDS ORDERED: Naloxone 0.4 MG/ML INJ IVP PRN (15:35)
[2021-01-26] MEDS ORDERED: *HR* Dextrose 50 % in Water (Vial) 50 ML VIAL IVP PRN (16:40)
[2021-01-26] MEDS ORDERED: Dextrose Gel 15 GM/37.5 ML TUBE PO PRN ×2 (16:40)
[2021-01-26] MEDS ORDERED: D5% in Water 1,000 ML IVC PRN (16:40)
[2021-01-26] MEDS: Insulin LISPRO 300 UNITS/3 ML VIAL SUBQ SCH (17:12)
[2021-01-26] MEDS ORDERED: Insulin LISPRO 300 UNITS/3 ML VIAL SUBQ SCH (21:00)
[2021-01-27 03:36] LABS: Basophils % 0.4 %; Eosinophils # 0.2 K/mcL (0.0-0.6); Eosinophils % 1.7 %; Hematocrit 36.8 % (37.5-50.1); Hemoglobin 12.2 g/dL (12.9-16.9); Immature Granulocytes % 0.4 % (0-4); Lymphocytes # 2.7 K/mcL (0.6-4.6); Lymphocytes % 29.1 %; Mean Corpuscular HGB Conc 33.2 g/dL (31.6-35.5); Mean Corpuscular Hemoglobin 30.1 pg (28.0-33.3); Mean Corpuscular Volume 90.9 fL (83.0-100.0); Mean Platelet Volume 11.8 fL (9.4-12.4); Monocytes # 0.8 K/mcL (0.0-1.3); Monocytes % 8.7 %; Neutrophils # 5.6 K/mcL (1.6-8.9); Platelet Count 191 K/mcL (140-400); Red Blood Count 4.05 M/mcL (4.19-5.50); Red Cell Distribution Width 13.3 % (11.5-14.5); Segmented Neutrophils % 59.7 %; White Blood Count 9.4 K/mcL (4.3-11.1)
[2021-01-27 03:57] LABS: BUN/Creatinine Ratio 16 (6-26); Blood Urea Nitrogen 16 mg/dL (8-23); Calcium 9.6 mg/dL (8.6-10.3); Carbon Dioxide 24 mEq/L (23-29); Chloride 105 mEq/L (98-107); Glucose 128 mg/dL (70-105); Osmolality,Calculated 289 (280-300); Sodium 138 mEq/L (136-145); eGFR For African Americans > 60 (> 60); eGFR For Non-African Americans > 60 (> 60)
[2021-01-27] MEDS: Insulin LISPRO 300 UNITS/3 ML VIAL SUBQ SCH ×3 (09:24→16:08)
[2021-01-27] MEDS ORDERED: Insulin LISPRO 300 UNITS/3 ML VIAL SUBQ SCH (12:08)
[2021-01-27] MEDS: levETIRAcetam 250 MG TABLET PO SCH (17:02)
[2021-01-27] MEDS: Artificial Tears SOLN 15 ML BOTTLE BOTH EYES SCH (20:39)
[2021-01-28] MEDS: levETIRAcetam 250 MG TABLET PO SCH (05:33)
[2021-01-28] MEDS: Insulin LISPRO 300 UNITS/3 ML VIAL SUBQ SCH ×2 (08:26→11:53)
[2021-01-28] MEDS: Artificial Tears SOLN 15 ML BOTTLE BOTH EYES SCH (08:30)
[2021-01-28] MEDS ORDERED: Aspirin 325 MG TABLET PO SCH (09:00)
[2021-01-28] MEDS ORDERED: Cholecalciferol (D-3) 1,000 UNIT (25MCG) TABLET PO SCH (09:00)
[2021-01-28] MEDS ORDERED: Multivit/Ca/Min/Fe/FA 1 TAB TABLET PO SCH (09:00)
[2021-01-28 12:52] VITALS: BP 101/55
[2021-01-28] MEDS ORDERED: levETIRAcetam 250 MG TABLET PO SCH (18:00)
== END 2021-01-28 14:42 | disposition home or self-care (01) ==
LOC: 3BNU → SUATTDRO 15:27
PROVIDERS: ADMIT Internal Medicine; ATTEND General Practice